=== PATIENT | female | born 1950 | race Caucasian/White ===

== ENCOUNTER 2020-10-20 15:50 | Emergency (ER) | payer MEDICARE, OTHER ==
[~2020-10-20] VITALS: Ht 160 cm; Wt 73.9 kg
[2020-10-20] MEDS ORDERED: AMITRIPTYLINE H50 M2 PO (16:07)
[2020-10-20] MEDS ORDERED: APRISO0.375 GM PO (16:08)
[2020-10-20] MEDS ORDERED: ENTOCORT EC 3 MG3 MG PO (16:08)
[2020-10-20] MEDS ORDERED: PROTONIX40 M2 PO (16:09)
[2020-10-20] MEDS ORDERED: ZESTRIL10 MG PO (16:09)
[2020-10-20] MEDS ORDERED: CELLCEPT500 MG PO (16:09)
[2020-10-20] MEDS ORDERED: ASTAGRAF XL1 MG PO (16:09)
[2020-10-20] MEDS ORDERED: ASTAGRAF XL0.5 MG PO (16:09)
[2020-10-20] MEDS ORDERED: NOVOLOG100 UNIT/1 SUBQ (16:10)
[2020-10-20] MEDS ORDERED: LOPRESSOR50 PO (16:11)
[2020-10-20] MEDS ORDERED: PRAVASTATIN SOD20 MG PO (16:11)
[2020-10-20 16:32] LABS: ABSOLUTE EOSINOPHILS 0.1 thou/uL (0.0-0.7); ABSOLUTE LYMPHOCYTES 1.8 thou/uL (0.8-5.3); ABSOLUTE MONOCYTES 0.3 thou/uL (0.0-1.2); ABSOLUTE NEUTROPHILS 2.9 thou/uL (1.6-8.1); BASOPHILS 0.3 %; EOSINOPHILS 1.6 %; HEMATOCRIT 41.2 % (37.0-47.0); HEMOGLOBIN 13.5 gm/dL (12.0-15.0); LYMPHOCYTES 35.6 %; MCH 27.1 pg (26.0-34.0); MCHC 32.8 g/dL (28.0-37.0); MCV 82.5 fL (80.0-100.0); MONOCYTES 6.8 %; MPV 7.1 fl. (7.2-11.1); NUCLEATED RBCS 0 /100WBC; PLATELET COUNT* 155 thou/uL (150-400); POLYS 55.7 %; RBC 4.99 mil/uL (4.20-5.00); WBC 5.1 thou/uL (4.0-11.0)
[2020-10-20 16:43] LABS: APTT 20.2 Seconds (25.0-31.3); PROTIME 10.7 Seconds (9.20-11.50)
[2020-10-20 17:23] LABS: CALCIUM 8.1 mg/dL (8.5-10.1); POTASSIUM 3.2 mmol/L (3.5-5.1)
[2020-10-20 17:36] LABS: ALBUMIN 3.7 g/dL (3.4-5.0); CK-MB MASS 1.5 ng/mL (<0.5-3.6); TOTAL BILIRUBIN 0.3 mg/dL (<0.1-1.0); TOTAL PROTEIN 6.2 g/dL (6.4-8.2)
[2020-10-20 18:04] LABS: BE -3.8 mmol/L (-2 to +3); PCO2 39.7 mmHg (35.0-45.0)
[2020-10-20 18:09] LABS: PO2 150.6 mmHg (75.0-100.0)
[2020-10-20 20:38] LABS: URINE BILIRUBIN NEGATIVE (Negative); URINE BLOOD NEGATIVE (Negative); URINE CLARITY CLEAR; URINE COLOR YELLOW; URINE GLUCOSE-RANDOM 2+ (Negative); URINE KETONES NEGATIVE (Negative); URINE LEUKOCYTES-REFLEX NEGATIVE (Negative); URINE NITRITE-REFLEX NEGATIVE (Negative); URINE PROTEIN NEGATIVE (Negative); URINE SPECIFIC GRAVITY <= 1.005 (1.005-1.030); URINE UROBILINOGEN 0.2 E.U./dl (0.2-1.0)
[2020-10-20 20:51] LABS: AMP/METHAMP Negative (Negative); BARBITURATES Negative (Negative); BENZODIAZEPINES POSITIVE (Negative); COCAINE Negative (Negative); METHADONE Negative (Negative); OPIATES Negative (Negative); PCP Negative (Negative); THC Negative (Negative)
[2020-10-20 21:31] VITALS: BP 90/47
--- NOTE | 2020-10-21 10:06 | EKG ---
[place] [address] ELECTROCARDIOGRAM REPORT Name: DIANA SAAB Room: [facility]#: [id number] Admission: 10/20/20 Attend Phys: Discharge: 10/20/20 Date of : 54 Date of Service: 10/20/20 1600 Report #: [id number] THIS REPORT FOR: //name// [facility] ED Test Date: 2020-10-20 Test Time: 16:00:28 Pat Name: DIANA MONTEZDepartment: Room: Gender: F [employer]: ANGELINA : 1950 Requested By: Jared Forrest Order Number: [id number] MD: Zhao Tafoya Measurements Intervals Voss Rate: 103 P: MS: QRS: -61 QRSD: 152 T: 83 QT: 498 QTc: 652 Interpretive Statements Probable sinus tachycardia Nonspecific interventricular conduction delay LVH with IVCD and secondary repol abnrm Prolonged QT interval Baseline wander in lead(s) II,III,aVR,aVL,aVF,V1,V2,V3,V4,V5,V6 No previous ECG available for comparison Electronically Signed On 10-21-2020 10:06:39 YARD JACKER by Zhao Tafoya [email or web address] <ELECTRONICALLY SIGNED> By: Zhao Tafoya MD, [facility] 10/21/20 1006 1600 1600 Zhao Tafoya MD, [facility] /EPI
== END 2020-10-20 21:31 | disposition short-term general hospital (02) ==
LOC: M.ERS 15:50
PROVIDERS: Family Medicine
DX: J96.90 Respiratory failure, unspecified, unspecified whether with hypoxia or hypercapnia (principal); Z20.828 Contact with and (suspected) exposure to other viral communicable diseases; R41.82 Altered mental status, unspecified; E11.9 Type 2 diabetes mellitus without complications; I10 Essential (primary) hypertension; J45.909 Unspecified asthma, uncomplicated; E78.00 Pure hypercholesterolemia, unspecified; Z94.0 Kidney transplant status; Z79.899 Other long term (current) drug therapy